=== PATIENT | female | born 2000 | race Caucasian/White ===

== ENCOUNTER 2020-09-26 17:05 | Emergency (ER) | payer OTHER ==
[~2020-09-26] VITALS: Ht 154.9 cm; Wt 66.7 kg
[2020-09-26 18:20] VITALS: BP 131/96
== END 2020-09-26 19:08 | disposition left against medical advice (07) ==
LOC: M.ERS 17:05
DX: Z53.21 Procedure and treatment not carried out due to patient leaving prior to being seen by health care provider (principal)